=== PATIENT | female | born 1960 | race Hispanic/Latino ===

== ENCOUNTER 2018-09-16 10:13 | Emergency (ER) | payer OTHER ==
[2018-09-16 11:36] LABS: APPEARANCE,URINE CLEAR (CLEAR); BILIRUBIN,URINE SMALL (NEGATIVE); COLOR,URINE YELLOW (YELLOW); GLUCOSE, URINE (UA) NEGATIVE (NEGATIVE); KETONES,URINE 5 mg/dL (NEGATIVE); LEUKOCYTE ESTERASE ,URINE NEGATIVE (NEGATIVE); NITRATE,URINE NEGATIVE (NEGATIVE); OCCULT BLOOD,URINE NEGATIVE (NEGATIVE); PH,URINE 5.5 (5.0-8.0); PROTEIN,URINE NEGATIVE (NEGATIVE)
[2018-09-16 11:45] LABS: BACTERIA,URINE Rare /HPF (None Seen); RBC,URINE 0-1 /HPF (0-1); SQUAMOUS EPITHELIAL CELL,UR Rare /HPF (0-2); WBC,URINE 0-1 /HPF (0-1)
[2018-09-16] MEDS ORDERED: ONDANSETRON HCL 4 MG/2 ML VIAL ONE (12:07)
[2018-09-16] MEDS ORDERED: SODIUM CHLORIDE 0.9% 1000ML 1,000 ML IV ONE (12:07)
[2018-09-16 12:20] LABS: BASOPHILS % (AUTO) 0.6 % (0.0-5.0); EOSINOPHILS % (AUTO) 2.2 % (0.0-8.0); HEMATOCRIT 45.8 % (36-48); LYMPHOCYTES % (AUTO) 22.5 % (21.0-51.0); MEAN CORPUSCULAR HEMOGLOBIN 30.1 pg (27.0-33.0); MEAN CORPUSCULAR HGB CONC 33.5 g/dL (32.0-36.0); MONOCYTES % (AUTO) 4.4 % (3.0-13.0); NEUTROPHILS % (AUTO) 70.3 % (40.0-77.0); PLATELET COUNT (AUTO) 152 K/uL (130-400); RED BLOOD CELL COUNT(AUTO) 5.09 MIL/uL (4.00-5.50); RED CELL DISTRIBUTION WIDTH 14.2 % (11.0-15.5); WHITE BLOOD COUNT (AUTO) 8.5 K/uL (4.8-10.8)
[2018-09-16 12:27] LABS: POTASSIUM 4.1 mmol/L (3.5-5.1)
[2018-09-16 12:33] LABS: INR 1.02 (0.85-1.15); PARTIAL THROMBOPLASTIN TIME 26.5 SEC (26.3-35.5); PROTHROMBIN TIME 10.7 SEC (9.6-11.6)
[2018-09-16 12:34] LABS: ALBUMIN 3.5 g/dL (3.5-5.0); BILIRUBIN,TOTAL 0.5 mg/dL (0.2-1.0)
== END 2018-09-16 15:06 | disposition home or self-care (01) ==
LOC: EDH 10:13
DX: R10.9 Unspecified abdominal pain (principal); R19.7 Diarrhea, unspecified; R11.2 Nausea with vomiting, unspecified; R42 Dizziness and giddiness; E07.9 Disorder of thyroid, unspecified; E11.9 Type 2 diabetes mellitus without complications
CPT/HCPCS: 36415; 74176; 80053; 81001; 83690; 84484; 85025; 85610; 85730; 93005; 96361; 96374; 99284; J2405; J7030

== ENCOUNTER 2019-06-11 14:40 | Emergency (ER) | payer SELFPAY ==
[2019-06-11] MEDS ORDERED: ONDANSETRON ODT 4 MG TAB ONE (15:23)
[2019-06-11] MEDS ORDERED: IBUPROFEN 200 MG TAB ONE (15:23)
[2019-06-11 15:48] LABS: RAPID GROUP A STREP NEGATIVE (NEGATIVE)
[2019-06-11] MEDS ORDERED: CEFTRIAXONE SODIUM 1 GM ONE (16:07)
[2019-06-11] MEDS ORDERED: LIDOCAINE HCL-MPF 1% 2ML VIAL ONE (16:08)
== END 2019-06-11 16:30 | disposition home or self-care (01) ==
LOC: EDH 14:40
DX: J02.9 Acute pharyngitis, unspecified (principal); E11.9 Type 2 diabetes mellitus without complications; E07.9 Disorder of thyroid, unspecified
CPT/HCPCS: 82948; 87804 ×2; 87880; 96372; 99284; J0696; J3490

== ENCOUNTER 2022-03-13 10:05 | Emergency (ER) | payer OTHER ==
[~2022-03-13] VITALS: Ht 157.5 cm; Wt 102.1 kg
[2022-03-13 10:23] LABS: BASOPHILS % (AUTO) 0.5 % (0.0-5.0); EOSINOPHILS % (AUTO) 1.5 % (0.0-8.0); HEMATOCRIT 43.8 % (36-48); LYMPHOCYTES % (AUTO) 18.3 % (21.0-51.0); MEAN CORPUSCULAR VOLUME 85.4 fL (79-99); MONOCYTES % (AUTO) 6.2 % (3.0-13.0); NEUTROPHILS % (AUTO) 73.2 % (40.0-77.0); PLATELET COUNT (AUTO) 169 K/uL (130-400); RED BLOOD CELL COUNT(AUTO) 5.13 MIL/uL (4.00-5.50); RED CELL DISTRIBUTION WIDTH 13.1 % (11.0-15.5); WHITE BLOOD COUNT (AUTO) 10.8 K/uL (4.8-10.8)
[2022-03-13 10:33] LABS: CREATININE 0.8 mg/dL (0.5-1.5); POTASSIUM 4.3 mmol/L (3.5-5.1)
[2022-03-13 10:37] LABS: ALBUMIN 4.1 g/dL (3.5-5.0); TOTAL PROTEIN, SERUM 8.4 g/dL (6.0-8.3)
[2022-03-13 11:22] LABS: APPEARANCE,URINE CLEAR (CLEAR); BILIRUBIN,URINE NEGATIVE (NEGATIVE); COLOR,URINE LIGHT-YELLOW (YELLOW); GLUCOSE, URINE (UA) NEGATIVE (NEGATIVE); KETONES,URINE NEGATIVE (NEGATIVE); LEUKOCYTE ESTERASE ,URINE NEGATIVE Leu/uL (NEGATIVE); NITRATE,URINE NEGATIVE (NEGATIVE); OCCULT BLOOD,URINE NEGATIVE (NEGATIVE); PH,URINE 7.5 (5.0-8.0); PROTEIN,URINE NEGATIVE (NEGATIVE); UROBILINOGEN,URINE 0.2 mg/dL (0.2-1.0)
[2022-03-13] MEDS ORDERED: MAG/ALUM/SIMETH 30 ML UDCUP PO ONE (12:30)
[2022-03-13] MEDS ORDERED: 0.9%NACL 1000ML 1,000 ML IV ONE (12:30)
[2022-03-13] MEDS ORDERED: ONDANSETRON 4MG INJ IVP ONE ×2 (12:30→14:00)
[2022-03-13] MEDS ORDERED: DICYCLOMINE HCL 10 MG/5 ML ML PO ONE (12:30)
[2022-03-13] MEDS ORDERED: FAMOTIDINE 20MG VIAL IV ONE (12:30)
[2022-03-13] MEDS ORDERED: LIDOCAINE HCL 2% VISCOUS 15 ML UDCUP PO ONE (12:30)
[2022-03-13] MEDS ORDERED: DICY20TA2 PO (13:51)
[2022-03-13] MEDS ORDERED: FAMO-136 PO (13:51)
[2022-03-13] MEDS ORDERED: ONDA4TAB10 PO (13:51)
[2022-03-13 13:56] VITALS: BP 147/77
[2022-03-13] MEDS ORDERED: KETOROLAC 30MG VIAL (30MG/ML) IVP ONE (14:30)
== END 2022-03-13 14:43 | disposition home or self-care (01) ==
LOC: EDH 10:05
DX: K80.20 Calculus of gallbladder without cholecystitis without obstruction (principal); E11.9 Type 2 diabetes mellitus without complications; R11.2 Nausea with vomiting, unspecified; E66.01 Morbid (severe) obesity due to excess calories; Z68.41 Body mass index [BMI] 40.0-44.9, adult; Z79.899 Other long term (current) drug therapy; Z98.890 Other specified postprocedural states
CPT/HCPCS: 99285; 96374; 96375; 76705; 96361; 84484; 80053; 83690; 85025; 81003; 36415; 93005; J3490; J7030; J2405 ×2; J1885

== ENCOUNTER 2022-11-22 10:10 | Emergency (ER) | payer BC, OTHER ==
[~2022-11-22] VITALS: Ht 165.1 cm; Wt 104.8 kg
[~2022-11-22 10:10] MED LIST: DICY20TA2 PO; FAMO-136 PO; ONDA4TAB10 PO
[2022-11-22] MEDS ORDERED: SOLU-MEDROL 125MG VIAL IM ONE (10:30)
[2022-11-22] MEDS ORDERED: HYDROCODONE/ACETAMINOPHEN 5/325 MG TAB PO ONE (10:30)
[2022-11-22 10:33] LABS: BASOPHILS % (AUTO) 0.9 % (0.0-5.0); EOSINOPHILS % (AUTO) 4.8 % (0.0-8.0); HEMATOCRIT 44.1 % (36-48); LYMPHOCYTES % (AUTO) 40.1 % (21.0-51.0); MEAN CORPUSCULAR HEMOGLOBIN 29.4 pg (27.0-33.0); MEAN CORPUSCULAR HGB CONC 33.6 g/dL (32.0-36.0); MEAN CORPUSCULAR VOLUME 87.5 fL (79-99); NEUTROPHILS % (AUTO) 48.9 % (40.0-77.0); PLATELET COUNT (AUTO) 176 K/uL (130-400); RED BLOOD CELL COUNT(AUTO) 5.04 MIL/uL (4.00-5.50); RED CELL DISTRIBUTION WIDTH 13.3 % (11.0-15.5); WHITE BLOOD COUNT (AUTO) 5.8 K/uL (4.8-10.8)
[2022-11-22 10:42] LABS: CREATININE 0.8 mg/dL (0.5-1.5)
[2022-11-22 10:47] LABS: ALBUMIN 4.1 g/dL (3.5-5.0)
[2022-11-22 12:00] LABS: APPEARANCE,URINE CLEAR (CLEAR); BILIRUBIN,URINE NEGATIVE (NEGATIVE); COLOR,URINE LIGHT-YELLOW (YELLOW); GLUCOSE, URINE (UA) NEGATIVE (NEGATIVE); KETONES,URINE NEGATIVE (NEGATIVE); LEUKOCYTE ESTERASE ,URINE NEGATIVE Leu/uL (NEGATIVE); NITRATE,URINE NEGATIVE (NEGATIVE); OCCULT BLOOD,URINE NEGATIVE (NEGATIVE); PH,URINE 5.5 (5.0-8.0); PROTEIN,URINE NEGATIVE (NEGATIVE); UROBILINOGEN,URINE 0.2 mg/dL (0.2-1.0)
[2022-11-22 12:53] VITALS: BP 117/73
[2022-11-22] MEDS ORDERED: METH-662 PO (13:02)
[2022-11-22] MEDS ORDERED: METH4TAB3 PO (13:02)
== END 2022-11-22 13:18 | disposition home or self-care (01) ==
LOC: EDH 10:10
DX: M54.41 Lumbago with sciatica, right side (principal); E11.9 Type 2 diabetes mellitus without complications; E66.01 Morbid (severe) obesity due to excess calories; Z79.52 Long term (current) use of systemic steroids; Z90.49 Acquired absence of other specified parts of digestive tract; Z90.710 Acquired absence of both cervix and uterus
CPT/HCPCS: 99284; 84484; 80053; 85025; 81003; 36415; 72100; 96372; 93005; J2930

== ENCOUNTER 2023-07-11 15:17 | Emergency (ER) | payer BC ==
[~2023-07-11] VITALS: Ht 165.1 cm; Wt 105.2 kg
[~2023-07-11 15:17] MED LIST changes: +METH-662 PO; +METH4TAB3 PO
[2023-07-11 15:43] LABS: ADD UA MICROSCOPIC YES; APPEARANCE,URINE CLEAR (CLEAR); BILIRUBIN,URINE NEGATIVE (NEGATIVE); COLOR,URINE YELLOW (YELLOW); GLUCOSE, URINE (UA) NEGATIVE (NEGATIVE); KETONES,URINE NEGATIVE (NEGATIVE); LEUKOCYTE ESTERASE ,URINE NEGATIVE Leu/uL (NEGATIVE); NITRATE,URINE NEGATIVE (NEGATIVE); OCCULT BLOOD,URINE NEGATIVE (NEGATIVE); PH,URINE 6.5 (5.0-8.0); PROTEIN,URINE NEGATIVE (NEGATIVE); UROBILINOGEN,URINE 12 mg/dL (0.2-1.0)
[2023-07-11 15:44] LABS: BACTERIA,URINE RARE /HPF (None Seen); MUCUS,URINE RARE LPF (None Seen); RBC,URINE 0-1 /HPF (0-1); SQUAMOUS EPITHELIAL CELL,UR FEW /HPF (0-2); WBC,URINE 0-1 /HPF (0-1)
[2023-07-11 15:49] LABS: BASOPHILS # (AUTO) 0.07 K/uL (0.00-0.20); EOSINOPHILS # (AUTO) 0.44 K/uL (0.00-0.70); IMMATURE GRANULOCYTE ABSOLUTE 0.02 K/uL (0-1); LYMPHOCYTES # (AUTO) 3.1 K/uL (1.0-4.8); LYMPHOCYTES % (AUTO) 41.9 % (21.0-51.0); MEAN CORPUSCULAR HEMOGLOBIN 29.5 pg (27.0-33.0); MEAN CORPUSCULAR HGB CONC 33.7 g/dL (32.0-36.0); MEAN CORPUSCULAR VOLUME 87.6 fL (79-99); MONOCYTES # (AUTO) 0.4 K/uL (0.1-1.0); MONOCYTES % (AUTO) 5.9 % (3.0-13.0); NEUTROPHILS # (AUTO) 3.3 K/uL (1.8-7.7); NEUTROPHILS % (AUTO) 44.9 % (40.0-77.0); PLATELET COUNT (AUTO) 163 K/uL (130-400); RED BLOOD CELL COUNT(AUTO) 4.68 MIL/uL (4.00-5.50); RED CELL DISTRIBUTION WIDTH 13.4 % (11.0-15.5); WHITE BLOOD COUNT (AUTO) 7.3 K/uL (4.8-10.8)
[2023-07-11 16:18] LABS: CREATININE 0.9 mg/dL (0.5-1.5); POTASSIUM 3.8 mmol/L (3.5-5.1)
[2023-07-11 16:22] LABS: ALBUMIN 3.9 g/dL (3.5-5.0); BILIRUBIN,TOTAL 0.7 mg/dL (0.2-1.0)
[2023-07-11] MEDS ORDERED: MAGNESIUM OXIDE 400 MG TABLET PO SCH (18:30)
[2023-07-11] MEDS ORDERED: 0.9% NACL 500ML IV.SOLN 500 ML IV SCH (18:30)
[2023-07-11 19:24] VITALS: BP 124/72; PULSE 68; RESP 16; O2SAT 96
== END 2023-07-11 19:28 | disposition home or self-care (01) ==
LOC: EDH 15:17
DX: M25.552 Pain in left hip (principal); R20.2 Paresthesia of skin; E83.42 Hypomagnesemia; E86.0 Dehydration; E11.9 Type 2 diabetes mellitus without complications; E78.00 Pure hypercholesterolemia, unspecified; E03.9 Hypothyroidism, unspecified; E66.01 Morbid (severe) obesity due to excess calories; Z68.38 Body mass index [BMI] 38.0-38.9, adult; Z90.49 Acquired absence of other specified parts of digestive tract; Z90.710 Acquired absence of both cervix and uterus
CPT/HCPCS: 99284; 96360; 83735; 84484; 80053; 85025; 81001; 36415; 73502; 93005; J7040

== ENCOUNTER 2024-08-22 10:34 | Emergency (ER) | payer BC ==
[~2024-08-22] VITALS: Ht 157.5 cm; Wt 92.1 kg
[~2024-08-22 10:34] MED LIST changes: +ONDA-243 PO; -ONDA4TAB10 PO
--- NOTE | 2024-08-22 11:19 | EKG ---
[facility] Test Date: 2024-08-22 Test Time: 11:12:42 Pat Name: COLETTE BERNARDO Department: [facility] Room: Gender: F Wire Communications Engineer: [id number] : 1960 Requested By: BIANCA JEREZ Order Number: [id number] Reading MD: Kilo Garvey Measurements Intervals [place] Rate: 87 P: 32 UT: 148 QRS: -28 QRSD: 101 T: 24 QT: 364 QTc: 439 Interpretive Statements Sinus rhythm Compared to ECG 07/11/2023 15:27:09 Left ventricular hypertrophy no longer present Electronically Signed On 08-23-2024 07:39:24 PHOTOGRAPHIC HAND DEVELOPER by Kilo Garvey Please click the below link to view image of tracing.
[2024-08-22 11:21] LABS: BASOPHILS # (AUTO) 0.04 K/uL (0.00-0.20); BASOPHILS % (AUTO) 0.4 % (0.0-5.0); EOSINOPHILS # (AUTO) 0.25 K/uL (0.00-0.70); EOSINOPHILS % (AUTO) 2.4 % (0.0-8.0); HEMATOCRIT 46.9 % (36-48); IMMATURE GRANULOCYTE ABSOLUTE 0.02 K/uL (0-1); LYMPHOCYTES # (AUTO) 2.2 K/uL (1.0-4.8); LYMPHOCYTES % (AUTO) 20.5 % (21.0-51.0); MEAN CORPUSCULAR HEMOGLOBIN 29.1 pg (27.0-33.0); MEAN CORPUSCULAR HGB CONC 33.7 g/dL (32.0-36.0); MEAN CORPUSCULAR VOLUME 86.4 fL (79-99); MONOCYTES # (AUTO) 0.5 K/uL (0.1-1.0); MONOCYTES % (AUTO) 4.7 % (3.0-13.0); NEUTROPHILS # (AUTO) 7.5 K/uL (1.8-7.7); NEUTROPHILS % (AUTO) 71.8 % (40.0-77.0); PLATELET COUNT (AUTO) 194 K/uL (130-400); RED BLOOD CELL COUNT(AUTO) 5.43 MIL/uL (4.00-5.50); RED CELL DISTRIBUTION WIDTH 13.2 % (11.0-15.5); WHITE BLOOD COUNT (AUTO) 10.5 K/uL (4.8-10.8)
[2024-08-22 11:23] LABS: APPEARANCE,URINE CLEAR (CLEAR); BILIRUBIN,URINE NEGATIVE (NEGATIVE); COLOR,URINE YELLOW (YELLOW); GLUCOSE, URINE (UA) NEGATIVE (NEGATIVE); KETONES,URINE NEGATIVE (NEGATIVE); LEUKOCYTE ESTERASE ,URINE NEGATIVE Leu/uL (NEGATIVE); NITRATE,URINE NEGATIVE (NEGATIVE); OCCULT BLOOD,URINE NEGATIVE (NEGATIVE); PH,URINE 5.5 (5.0-8.0); PROTEIN,URINE NEGATIVE (NEGATIVE); UROBILINOGEN,URINE 0.2 mg/dL (0.2-1.0)
[2024-08-22 11:27] LABS: CREATININE 0.8 mg/dL (0.5-1.0); POTASSIUM 4.2 mmol/L (3.5-5.1)
[2024-08-22 11:28] LABS: BACTERIA,URINE RARE /HPF (None Seen); MUCUS,URINE RARE LPF (None Seen); RBC,URINE 0-1 /HPF (0-1); SQUAMOUS EPITHELIAL CELL,UR RARE /HPF (0-2); WBC,URINE 0-1 /HPF (0-1)
[2024-08-22 11:31] LABS: ALBUMIN 4.2 g/dL (3.5-5.0); BILIRUBIN,DIRECT 0.2 mg/dL (0.0-0.3); BILIRUBIN,TOTAL 0.9 mg/dL (0.2-1.0); TOTAL PROTEIN, SERUM 8.3 g/dL (6.0-8.3)
[2024-08-22] MEDS: DICYCLOMINE HCL 20 MG TAB PO ONE (11:58)
[2024-08-22] MEDS: ondanSETRON ODT 4MG TAB SL ONE (11:58)
[2024-08-22] MEDS ORDERED: ONDA-243 PO (12:52)
[2024-08-22] MEDS ORDERED: DICY20TA2 PO (12:52)
--- NOTE | 2024-08-22 12:53 | ERN ---
General Chief Complaint: Abdominal Pain Stated Complaint: DIARRHEA, VOMITING Time Seen by MD: 10:36 Source: patient History of Present Illness Allergies: Coded Allergies: No Known Allergies (Unverified Allergy, Unknown, 03/13/22) Home Meds Active Scripts Methocarbamol (Robaxin) 750 Mg Tab, 750 MG PO BID PRN for muscle spasm, #15 TAB Prov:JUDAH MENDEZ MD 11/22/22 Methylprednisolone (Medrol) 4 Mg Tab.ds.pk, 4 MG PO as directed on pack, #1 PACK Prov:JUDAH MENDEZ MD 11/22/22 Ondansetron (Ondansetron Odt) 4 Mg Tab.rapdis, 4 MG PO TID, #21 TAB Prov:FRANSISCA HENSON 03/13/22 Famotidine (Pepcid) 20 Mg Tablet, 20 MG PO BID, #60 TAB Prov:FRANSISCA HENSON 03/13/22 Dicyclomine HCl (Bentyl) 20 Mg Tab, 20 MG PO QID, #28 TAB Prov:FRANSISCA HENSON 03/13/22 Past Medical History Past Medical History: Diabetes-Type II, Hypothyroid Medical History Other: Morbidly obese Past Surgical History: Hysterectomy, Cholecystectomy, Other Surgical History Other: HERNIA Family History Family History: Negative Social History Social History: Negative Results Laboratory and Microbiology Lab and Micro Result Laboratory Tests Test 08/22/24 11:00 08/22/24 11:03 Urine Color YELLOW (YELLOW) Urine Appearance CLEAR (CLEAR) Urine pH 5.5 (5.0-8.0) Urine Specific [place] 1.022 (1.001-1.031) Urine Protein NEGATIVE mg/dL (NEGATIVE) Urine Glucose (UA) NEGATIVE mg/dL (NEGATIVE) Urine Ketones NEGATIVE mg/dL (NEGATIVE) Urine Occult Blood NEGATIVE (NEGATIVE) Urine Nitrate NEGATIVE (NEGATIVE) Urine Bilirubin NEGATIVE mg/dL (NEGATIVE) Urine Urobilinogen 0.2 mg/dL (0.2-1.0) Urine Leukocyte Esterase NEGATIVE Patel/uL Urine RBC 0-1 /HPF (0-1) Urine WBC 0-1 /HPF (0-1) Urine Squamous Epithelial Cells RARE /HPF (0-2) Urine Bacteria RARE /HPF (None Seen) White Blood Count 10.5 K/uL (4.8-10.8) Red Blood Count 5.43 MIL/uL (4.00-5.50) Hemoglobin 15.8 g/dL (12.0-16.0) Hematocrit 46.9 % (36-48) Mean Corpuscular Volume 86.4 fL (79-99) Mean Corpuscular Hemoglobin 29.1 pg (27.0-33.0) Mean Corpuscular Hemoglobin Concent 33.7 g/dL (32.0-36.0) Red Cell Distribution Width 13.2 % (11.0-15.5) Platelet Count 194 K/uL (130-400) Mean Platelet Volume 9.7 fL (7.5-10.5) Immature Granulocyte % (Auto) 0.2 % (0-1) Neutrophils (%) (Auto) 71.8 % (40.0-77.0) Lymphocytes (%) (Auto) 20.5 % (21.0-51.0) L Monocytes (%) (Auto) 4.7 % (3.0-13.0) Eosinophils (%) (Auto) 2.4 % (0.0-8.0) Basophils (%) (Auto) 0.4 % (0.0-5.0) Neutrophils # (Auto) 7.5 K/uL (1.8-7.7) Lymphocytes # (Auto) 2.2 K/uL (1.0-4.8) Monocytes # (Auto) 0.5 K/uL (0.1-1.0) Eosinophils # (Auto) 0.25 K/uL (0.00-0.70) Basophils # (Auto) 0.04 K/uL (0.00-0.20) Absolute Immature Granulocyte (auto 0.02 K/uL (0-1) Nucleated Red Blood Cells 0.0 % (0.0-0.19) Sodium Level 139 mmol/L (136-145) Potassium Level 4.2 mmol/L (3.5-5.1) Chloride Level 104 mmol/L (101-111) Carbon Dioxide Level 30 mmol/L (21-32) Blood Urea Nitrogen 16 mg/dL (7-18) Creatinine 0.8 mg/dL (0.5-1.0) Glomerular Filtration Rate Calc 83 mL/min (>90) Random Glucose 107 mg/dL (70-105) H Total Calcium 9.2 mg/dL (8.5-10.1) Total Bilirubin 0.9 mg/dL (0.2-1.0) Direct Bilirubin 0.2 mg/dL (0.0-0.3) Aspartate Amino Transf (AST/SGOT) 19 U/L (10-37) Alanine Aminotransferase (ALT/SGPT) 28 U/L (12-78) Alkaline Phosphatase 77 U/L (50-136) Troponin I High Sensitivity < 4 ng/L (4-50) L Total Protein 8.3 g/dL (6.0-8.3) Albumin 4.2 g/dL (3.5-5.0) Lipase 66 U/L (16-77) ED Course Orders Procedure Category Date Status Time Cbc With Differential LAB 08/22/24 Complete 10:50 Basic Metabolic Panel LAB 08/22/24 Complete 10:50 Urinalysis LAB 08/22/24 Complete W/Microscopic 10:50 Lipase LAB 08/22/24 Complete 10:50 12 Lead Ekg Tracing- EKG 08/22/24 Complete Technical 10:56 Troponin I High LAB 08/22/24 Complete Sensitivity 10:56 Hepatic Function Panel LAB 08/22/24 Complete 10:50 Dicyclomine Hcl PHA 08/22/24 Complete (Bentyl 20mg Tab) 12:00 Ondansetron Odt 4mg PHA 08/22/24 Complete Tab (Zofran 4mg Odt) 12:00 Current Medications Medications (Trade) Dose Ordered Sig/Bozena Route PRN Reason Start Time Stop Time Status Last Admin Dose Admin Dicyclomine HCl (Bentyl 20mg Tab) 20 mg ONCE ONCE PO 08/22/24 12:00 08/22/24 12:01 DC 08/22/24 11:58 Ondansetron HCl (zoFRAN 4MG ODT) 4 mg ONCE ONCE SL 08/22/24 12:00 08/22/24 12:01 DC 08/22/24 11:58 Vital Signs Date Time Temp Pulse Resp B/P (MAP) Pulse Ox O2 Delivery O2 Flow Rate FiO2 08/22/24 10:51 97.9 89 16 139/80 98 Room Air* 0 21 08/22/24 10:50 97.0 96 20 119/72 96 Room Air 0 DX & DISP Disposition: Discharge Departure Impression: Primary Impression: Diarrhea Condition: Stable Scripts Dicyclomine HCl (Bentyl) 20 Mg Tab 20 MG PO QID for 5 Days, #20 TAB Prov: BIANCA JEREZ 08/22/24 Ondansetron (Ondansetron Odt) 4 Mg Tab.rapdis 4 MG PO TID for 3 Days, #9 TAB Prov: BIANCA JEREZ 08/22/24 Additional Instructions: Discharge home. Rest. Follow up with primary care DrUdya in 24 hours. Return to the ER for any acute changes or worsening symptoms. If any medications were prescribed take as directed. Okay to continue home me dications unless otherwise discussed during your visit in the emergency room today. Patient was also advised to follow-up with primary care physician in 1 to 2 days for continued monitoring. Referrals: TANK BRAGA MD (PCP) I participated in the following activities of this patient's care: For this patient encounter, I reviewed the PA or GAS SCRUBBER OPERATOR documentation, treatment plan, and medical decision making. I did not have [id number] time with this patient. I will sign as the reviewing DrUday And agree with the treatment plan and disposition. BIANCA JEREZ Aug 22, 2024 12:53
[2024-08-22 13:15] VITALS: BP 138/78; PULSE 88; RESP 16; TEMP 98; O2SAT 96
== END 2024-08-22 13:15 | disposition home or self-care (01) ==
LOC: EDH 10:34
DX: R19.7 Diarrhea, unspecified (principal); E11.9 Type 2 diabetes mellitus without complications; E03.9 Hypothyroidism, unspecified; E66.01 Morbid (severe) obesity due to excess calories; Z90.49 Acquired absence of other specified parts of digestive tract; Z90.710 Acquired absence of both cervix and uterus
CPT/HCPCS: 36415; 80048; 80076; 81001; 83690; 84484; 85025; 93005; 99284